=== PATIENT | female | born 1975 | race Caucasian/White ===

== ENCOUNTER 2020-11-13 14:33 | Emergency (ER) | payer OTHER ==
[2020-11-13 14:39] VITALS: BP 111/69; PULSE 75; TEMP 97.4; BMI 20.1
[2020-11-13] MEDS ORDERED: CASIRIVIMAB/IMDEVIMAB 10 ML in SODIUM CHLORIDE 100 ML IVPB ONE (17:00)
== END 2020-11-13 18:31 | disposition home or self-care (01) ==
LOC: JCOVINFU 14:33
PROC: 3E0233Z Introduction of Anti-inflammatory into Muscle, Percutaneous Approach (ICD-10-PCS; principal; 2020-11-13)
DX: U07.1 COVID-19 (principal)
CPT/HCPCS: 99284-25; Q0240